=== PATIENT | female | born 1975 | race Caucasian/White ===

== ENCOUNTER 2019-12-08 14:36 | Emergency (ER) | payer OTHER, BC, SELFPAY ==
[2019-12-08 14:38] VITALS: BP 131/73; PULSE 66; RESP 16; TEMP 36.3; O2SAT 98; BMI 22.0
--- NOTE | 2019-12-08 14:53 | ED.RN ---
[facility] CONTACTED AND STATES WILL BE IN.
--- NOTE | 2019-12-08 15:10 | ED.VISSUMM ---
- ER Visit Summary Date of Service: 12/08/19 Chief Complaint: Laceration History of Present Illness: The patient is a 44 F with no primary care physician. She unsure when her last tetanus shot was. She states that she was hit in the lower lip by a piece of machinery at work. States that her lip stings and she has pain is 3 out of 10 in severity. She denies any loose teeth or malocclusion. She denies any neck pain, loss of consciousness, or other injuries. Physical Examination: Vitals: Stable. Afebrile. Mouth: 1 cm superficial laceration to the lower lip with no active bleeding. This is not gaping. There are no loose teeth or malocclusion. Neck: No vertebral tenderness. Full ROM without difficulty. Cleared by NEXUS criteria. Back: No vertebral tenderness. General: A&O x 3. NAD. Cardiovascular exam: Regular rate and rhythm, no murmur, rub or gallop. Respiratory exam: Chest nontender. No crepitus. Clear to auscultation bilaterally. No wheezes or stridor. Abdominal exam: Soft, nontender, nondistended, normal bowel sounds. No pain in RUQ or LUQ specifically. No peritoneal signs. Extremity: Atraumatic. No pain with range of motion. Emergency Department Course and Treatment: Patient refused pain medications. She was reassured and had her tetanus updated. Treatment Plan: Patient will be discharged instructions to follow-up [facility] in 1 week for another exam. Return to the emergency department for any worsening symptoms. Disposition: To home in improved and stable condition. Impression: 1. Laceration of lower lip, 1 cm, not repaired. This note was generated with [employer] dictation software. It may contain incorrect words, spelling, and punctuation that were not noted in review of the chart prior to signing ED Disposition - Plan for ED Patient: Disposition: Home or Assisted Living Instructions: ED Laceration Small or Superficial Not Stitched Referrals: [facility] [GROUP OF PHYSICIANS] - 1 Week
[2019-12-08] MEDS: Diphth,Pertuss(Acell),Tet Vac 0.5 ML Vial IM (15:18)
== END 2019-12-08 15:30 | disposition home or self-care (01) ==
LOC: ED 15:06
PROVIDERS: Emergency Provider Emergency Medicine
DX: S01.511A Laceration without foreign body of lip, initial encounter (principal); W31.9XXA Contact with unspecified machinery, initial encounter; Y93.9 Activity, unspecified; Y92.9 Unspecified place or not applicable; Y99.0 Civilian activity done for income or pay
CPT/HCPCS: 90715; 99282